=== PATIENT | male | born 1955 | race Caucasian/White ===

== ENCOUNTER 2023-06-20 14:08 | Outpatient (CLI) | payer MEDICARE, BC, SELFPAY ==
--- NOTE | 2023-06-20 14:30 | MR_ITS ---
[facility] [address] [facility] [address] Phone:?[phone] Fax:?[phone] Referring Physician Information: Adarsh Hernandez M.D. [address] [place] [address] Phone:?[phone] Fax:?[phone] Patient:?Royce Bravo D.Eloy.B:?1955 Sex:?Male Phone:?[phone] [facility] MRN:?[id number] Exam Date:?06/20/2023 EXAM: MRI OF THE RIGHT KNEE CLINICAL INFORMATION: The patient is a 67-year-old with right knee pain. Evaluate for medial meniscal tear. PRIOR SURGERY: None reported. COMPARISON STUDIES: Comparison is made to prior radiographs dated 06/13/2023. TECHNICAL INFORMATION: Imaging was performed on a high-field, 1.5 Clarissa MR scanner. Sagittal proton-density and fat-suppressed proton-density imaging was performed in addition to coronal proton-density and coronal STIR imaging. Axial proton-density and axial fat-suppressed T2 imaging was also produced. FINDINGS: Articular/Extraarticular collections: Effusion: Mild. Popliteal cyst: Small, seen on axial series 4 image 20. Loose bodies: No well-defined intra-articular loose bodies are present. Subcutaneous and extraarticular soft tissues: Nonspecific subcutaneous soft tissue edema and/or hemorrhage can be seen along the anterior, anteromedial, and anterolateral aspects of the right knee. Osseous structures: Cortical irregularity, subcortical cystic change, and subcortical edema can be seen along the lateral articular surfaces of the femoral trochlea on axial series 4 image 16 and on sagittal series 6 image 14. The findings are in keeping with chondromalacia and chondral loss described below. No other bony abnormalities about the knee are seen. There is no evidence for fracture, contusion, or stress injury. Ligamentous structures: ACL: Intact and normal in appearance. PCL: Chronic thickening of the proximal and mid portions of the PCL can be seen with increased intrasubstance signal intensity on sagittal series 6 images 19 and 20. The findings are in keeping with residual changes of a chronic moderate incomplete PCL sprain. No transverse disruption of PCL fibers can be seen. MCL: Chronic mild residual changes of a prior incomplete MCL sprain are noted and can be seen on coronal series 8 image 18. LCL: Intact and normal in appearance. Posterolateral corner: Intact and normal in appearance. Posteromedial corner: No posteromedial corner soft tissue injury. Semimembranosus and pes anserine tendons demonstrate no tendinopathy or associated bursitis. Extensor mechanism/Patellar retinacular structures: Patellar tendon: Intact, without tendinopathy. Quadriceps tendon: Intact, without tendinopathy. Retinacula: The medial and lateral retinacula are intact. The medial patellofemoral ligament is intact. Medial compartment: Medial meniscus: The medial meniscus is abnormal in appearance. There is horizontal tearing of the posterior horn seen on sagittal series 6 image 23, extending from the meniscal apex to the meniscal attachment and measuring approximately 15 mm in greatest dimension. Additional degeneration and fraying of the medial meniscus can be seen with partial-thickness tearing and fraying of the meniscotibial attachment on sagittal series 6 image 20. The middle and anterior portions of the medial meniscus appear intact. No parameniscal cyst formation is identified. Medial femoral condyle: Broad-based changes of grade II to III chondromalacia can be seen along the weightbearing surfaces of the medial femoral condyle. No full-thickness chondral defects are seen. Medial tibial plateau: Grade II chondromalacia can be seen along the weightbearing surfaces of the medial tibial plateau. Lateral compartment: Lateral meniscus: No evidence for lateral meniscal tearing is present. No evidence for parameniscal cyst formation can be seen. Lateral femoral condyle: No chondromalacia, chondral defect, or osteochondral abnormality. Lateral tibial plateau: No chondromalacia, chondral defect, or osteochondral abnormality. Patellofemoral compartment: Patella: Full-thickness and near full-thickness chondral loss can be seen involving the patellar apex with additional changes of grade II to III chondromalacia of the lateral patellar. The findings are seen on axial series 4 image 12. Trochlea: Full-thickness and near full-thickness chondral loss can be seen along the lateral articular surfaces of the femoral trochlea. Underlying bony changes are noted. Neurovascular: No definite neurovascular abnormalities are seen. CONCLUSION: 1. Tearing of the posterior horn of the medial meniscus, including horizontal tearing as well as incomplete tearing of the posterior root. 2. No lateral meniscal tearing is seen. 3. 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 4. Chronic incomplete PCL sprain. The ligamentous structures of the knee are otherwise intact. 5. Mild knee joint effusion and small popliteal cyst. AEC Electronically signed on 06/21/2023 8:07:00 AM by Dre Godoy M.D.
== END 2023-06-20 14:09 | disposition home or self-care (01) ==
LOC: MRI 14:09
PROVIDERS: PCP Physician Assistant; Visit Provider Orthopaedic Surgery
DX: M25.561 Pain in right knee (principal); S83.241A Other tear of medial meniscus, current injury, right knee, initial encounter; M22.41 Chondromalacia patellae, right knee; S83.521A Sprain of posterior cruciate ligament of right knee, initial encounter; M25.461 Effusion, right knee
CPT/HCPCS: 73721

== ENCOUNTER 2023-07-10 11:49 | Day surgery (SDC) | payer MEDICARE, BC, SELFPAY ==
[2023-07-10] VITALS (11 sets, daily range): BP systolic 90–152; BP diastolic 39–106; PULSE 60–73; RESP 10–16; TEMP 36.1–37; O2SAT 92–97
--- OUTSIDE RECORDS SUMMARY | 2023-07-10 11:53 | XMS_ITS | Clinical Summary ---
Author Name Unknown Organization [facility] Address [place], [place] [address] Care Team Providers Care Auto Damage Trainee Name Role Phone Pcp, No Primary Care Provider Unavailabl e Allergies Active Allergy Reactions Criticality Noted Date Comments Penicillins 05/08/2006 Medications Medication Sig Dispensed Refills Start Date End Date Status IMITREX 50 MG TAB take 2 tablets (100mg) by oral route x 1 dose with fluids as early as possible after the onset of a migraine attack; if headache returns, the dose may be repeated after 2 hours, not to exceed a total daily dose of 200mg. 0 05/08/2006 Active Immunizations Name Administration Dates Next Due Influenza, IIV3 (Age >=3 years) 03/16/2012 Td (Age >=7 Years) 04/12/1998 Tdap 05/18/2016 Family History Medical History Relation Name Comments Leukemia Father Cancer-prostate Maternal Grandfather Diabetes Maternal Grandfather Heart Disease Maternal Grandfather Cancer-breast Maternal Grandmother Stroke Paternal Grandfather Relation Name Status Comments Father (Age 30) Maternal Grandfather Maternal Grandmother Mother Alive Paternal Grandfather Social History Tobacco Use Types Packs/Day Years Used Date Smoking Tobacco: Never Smokeless Tobacco: Never Alcohol Use Standard Drinks/Week Comments No 0 (1 standard drink = 0.6 oz pur e alcohol) Sex and Gender Information Value Date Recorded Sex Assigned at Not on file Gender Identity Not on file Sexual Orientation Not on file Obstetrics History Last Filed Vital Signs Vital Sign Reading Time Taken Comments Blood Pressure 138/82 05/31/2018 9:01 AM CDT Pulse 68 05/31/2018 9:01 AM CDT Temperature - - Respiratory Rate 20 05/18/2016 9:42 AM CLINICAL RN MANAGER Oxygen Saturation - - Inhaled Oxygen Concentration - - Weight 93.9 kg (207 lb 1.6 oz) 05/28/2018 11:43 AM CDT Height 176.5 cm (5' 9.5) 05/28/2018 11:43 AM CD T Body Mass Index 30.14 05/28/2018 11:43 AM CDT Plan of Treatment Health Maintenance Due Date Last Done Comments Depression screening for age 12+ 1968 Hepatitis C screening for age 18-79 1974 Colonoscopy through age 75 2001 Lipids for age 45-75 2001 Zoster (shingles) series for age 50+ (1 of 2) 2006 BMI (ht and wt on same day) for age 18+ 05/29/2019 0 05/28/2018, 05/18/2016 Pneumococcal series for age 65+ (1 of 1 - PCV) 2021 COVID-19 vaccine series ( - 2022- season) 2022 Influenza for age 65+ 11/11/2023 03/16/2012 Tetanus booster 05/18/2026 05/18/2016, 04/12/1998 Tdap Completed 05/18/2016 Care Teams Auto Damage Trainee Relationship Specialty Start Date End Date Pcp, No . PCP - General 05/24/18
--- OUTSIDE RECORDS SUMMARY | 2023-07-10 11:53 | XMS_ITS | Encounter Summary ---
Author Name Unknown Organization [facility] Address [address] [place] [address] Care Team Providers Care International Marketing Intern Name Role Phone Mary Daly.A.-C. Primary Care Provider +1- [phone] Reason for Visit * Reason Onset Date Comments Results 04/11/2023 Encounter Details Date Type Department Care Team (Late st Contact Info) Description 04/11/2023 Clinical Communication Department of Family Medicine, [facility], in [place], [place] [address] [phone] Mary Daly, P.A.-CBuzz [address] [phone] Results Social History Tobacco Use Types Packs/Day Years Used Date Smoking Tobacco: Never Smokeless Tobacco: Never Alcohol Use Standard Drinks/Week Comments No 0 (1 standard drink = 0.6 oz pur e alcohol) [facility] Utilities Answer Date Recorded In the past 12 months has e electric, gas, oil, or water company threatened to shut off services in your home? No 04/05/2023 Humiliation, Afraid, Rape, and Kick questionnair e Answer Date Recorded Within the last year, have y ou been afraid of your partner or ex-partner? No 02/27/2022 Within the last year, have y ou been humiliated or emotionally abused in other ways by your partner or ex-partner? No Within the last year, have y ou been kicked, hit, slapped, or otherwise physically hurt by your partner or ex-partner? No 02/27/2022 Within the last year, have y ou been raped or forced to have any kind of sexual activity by your partner or ex-partner? No 02/27/2022 Social Connection and Isolat ion Panel [NHANES] Answer Date Recorded In a typical week, how many times do you talk on the phone with family, friends, or neighbors? Three times a week 02/27/2022 How often do you get togethe r with friends or relatives? Once a week 02/27/2022 How often do you attend chur ch or catholic services? More than 4 times per year 02/27/2022 Do you belong to any clubs o r organizations such as scientology groups, unions, fraternal or athletic groups, or school groups? Yes 02/27/2022 How often do you attend meet ings of the clubs or organizations you belong to? More than 4 times per year 02/27/2022 Are you , , di vorced, , never , or living with a partner? 02/27/2022 AUDIT-C Answer Date Recorded Q1: How often do you have a drink containing alc ohol? Never 02/27/2022 Average Number of Drinks Not on file 022 Frequency of Binge Drinking Not on file 02/09 Overall Financial Resource Strain (CARDIA) Answe r Date Recorded How hard is it for you to pa y for the very basics like food, housing, medical care, and heating? Not hard at all 02/27/2022 PHQ-2 Answer Date Recorded PHQ-2 Score 0 04/05/2023 [facility] - Occupational Stress Questionnaire Answer Date Recorded Do you feel stress - tense, restless, nervous, or anxious, or unable to sleep at night because your mind is troubled all the time - these days? Not at all 02/27/2022 Exercise Vital Sign Answer Date Recorde d On average, how many days pe r week do you engage in moderate to strenuous exercise (like a brisk walk)? 5 days 04/05/2023 On average, how many minutes do you engage in exercise at this level? 60 min 04/05/2023 Hunger Vital Sign Answer Date Recorded Within the past 12 months, y ou worried that your food would run out before you got the money to buy more. Never true 04/05/19 24 Within the past 12 months, t he food you bought just didn't last and you didn't have money to get more. Never true 04/05/2023 PRAPARE - Transportation Answer Date Re corded In the past 12 months, has l ack of transportation kept you from medical appointments or from getting medications? No 03/13 In the past 12 months, has l ack of transportation kept you from meetings, work, or from getting things needed for daily living? No 04/05/2023 Nutrition Answer Date Recorded On average, how many serving s of fruits and vegetables do you eat per day (serving size is equal to 1 cup or approximately the size of a tennis ball)? 3-5 04/05/2023 Dental Answer Date Recorded Dental: Regular Dentist Yes 02/28/20 Employment Answer Date Recorded Employment status Retired 04/05/2023 Housing Stability Answer Date Recorded What is your living situation today? I have a [facility] place to live 04/05/2023 Education Answer Date Recorded What is the highest level of school you have completed or the highest degree you have received? Bachelor's degree (e.g., BA, AB, BS) 02/27/2022 Sex and Gender Information Value Date Recorded Sex Assigned at Male 04/05/2023 9:00 AM DIRECTOR PHARMACOLOGY Gender Identity Male 04/05/2023 9:00 AM DIRECTOR PHARMACOLOGY Sexual Orientation Straight 04/05/2023 7: 50 AM DIRECTOR PHARMACOLOGY documented as of this encounter Miscellaneous Notes * Telephone Encounter - Megha Gonzalez, L.P.N. - 04/11/2023 11:08 AM DIRECTOR PHARMACOLOGY SUBJECTIVE CHIEF COMPLAINT / REASON FOR CALL Results Information Discussed Patient given recent lab findings along with advisement from provider per Mary KESSLER direction. PLAN Disposition/Recommendation: recommended continue engagement in self-management activities Information/Education: patient/caller able to teach back Caller agreeable to plan of care: yes The following references were used: Mary KSESLER CTOR PHARMACOLOGY * Telephone Encounter - Lidia Jackson R.N. - 04/11/2023 10:44 AM CST Left message for patient to return call to clinic. Does the patient need to speak to nursing? yes, please transfer to care team. Action needed: Please relay message from Mary Daly: fasting glucose is elevated in pre diabetes range. Recommend diet low in carbs/sugar and regular aerobic exercise to prevent progression to diabetes mellitus type 2. Overall, cholesterol looks good with components at goal. PSA (prostate-specific antigen) within normal range. CTOR PHARMACOLOGY documented in this encounter Plan of Treatment Not on file documented as of this encounter Visit Diagnoses Not on filedocumented in this encounter Additional Health Concerns Assessment Noted Time PHQ-9 Depression Total Score: 1 04/04/19 18 8:01 AM DIRECTOR PHARMACOLOGY documented as of this encounter Care Teams International Marketing Intern Relationship Specialty Start Date End Date Mary Daly P.A.-C. [address] [phone] PCP - General Family Medicine 03/08/20 documented as of this encounter
--- OUTSIDE RECORDS SUMMARY | 2023-07-10 11:53 | XMS_ITS | Encounter Summary ---
Author Name Unknown Organization [facility] Address [address] [place] [address] Care Team Providers Care Floor Service Worker Spring Name Role Phone Mary Daly P.A.-C. Primary Care Provider [phone]- [phone] Reason for Visit * Reason Comments Pre-op Exam On 07/10/2023 for hi s Right knee for a tear w/ Adarsh Bowers @ [facility] * Appointment Request (Routine) - Closed Specialty Diagnoses / Procedures Referred By Veronica daniels Referred To Contact Family Medicine Referral ID Status Reason Start Date Expiration Date Visits Re quested Visits Authorized [id number] Closed 06/25/2023 06/24/2024 1 1 Encounter Details Date Type Department Care Team (Late st Contact Info) Description 07/04/2023 3:30 PM CDT Office Visit Department of Family Medicine, [facility], in [place], [place] [address] [phone] Mary Daly, P.A.-C. [address] [place] [phone] Tear Knee Meniscus Current Subsequent Right (Primary Dx); Preoperative Exam; Hypertension Essential Primary; Frequency Urinary Social History Tobacco Use Types Packs/Day Years Used Date Smoking Tobacco: Never Smokeless Tobacco: Never Alcohol Use Standard Drinks/Week Comments No 0 (1 standard drink = 0.6 oz pur e alcohol) [facility] Utilities Answer Date Recorded In the past 12 months has [employer], or [employer] threatened to shut off services in your [...] often do you attend chur ch or restorationism services? More than 4 times per year 02/27/2022 Do you belong to any clubs o r organizations such as mandaen groups, unions, fraternal or athletic groups, or [...] Answer Date Recorded PHQ-2 Score 0 04/05/2023 [facility] Occupat ional Health - Occupational Stress [...] your living situation today? I have a [facility] place to live 04/05/2023 Education Answer Date Recorded What is the highest level of school you have completed or the highest degree you have received? Bachelor's degree (e.g., BA, AB, BS) 02/27/2022 Sex and Gender Information Value Date Recorded Sex Assigned at Male 04/05/2023 9:00 AM STONER HAND Gender Identity Male 04/05/2023 9:00 AM STONER HAND Sexual Orientation Straight 04/05/2023 7: 50 AM STONER HAND documented as of this encounter Last Filed Vital Signs Vital Sign Reading Time Taken Comments Blood Pressure 131/81 07/04/2023 3:12 PM CDT Pulse 77 07/04/2023 3:12 PM CDT Temperature 36.4 ??C (97.6 ??F) 07/04/2023 3:12 PM CD T Respiratory Rate - - Oxygen Saturation - - Inhaled Oxygen Concentration - - Weight 101 kg (223 lb 1.7 oz) 07/04/2023 3:12 PM CDT Height - - Body Mass Index 32.3 04/05/2023 7:51 AM STONER HAND documented in this encounter Patient Instructions * Patient Instructions* Mary Daly P.A.-C. - 07/04/2023 3:30 PM CDT No aspirin-containing products 7 days prior to procedure or ibuprofen/Advil 24 hours before surgery. Tylenol/acetaminophen would be a safe option if needed. Hold losartan morning of surgery. documented in this encounter Progress Notes * Mary Daly P.A.-C. - 07/04/2023 3:30 PM CDT FAMILY MEDICINE PREOPERATIVE EXAM: PROPOSED SURGERY DATE: 07/10/2023. SURGEON: Dr. Bowers. PROPOSED SURGERY: Arthroscopic meniscectomy- Right LOCATION: [facility] SUBJECTIVE HISTORY OF PRESENT ILLNESS Royce Bravo is a pleasant 67 y.o. male who presents to the clinic today for preoperative anesthetic medical exam for the above-mentioned procedure. He states he is feeling well and has no complaints at this time. REVIEW OF SYSTEMS Constitutional: - Negative for fever and night sweats. Eyes: - Negative for visual problems. ENT: - Negative for difficulty hearing. Respiratory: - Negative for shortness of breath and wheezing. Cardiovascular: - Negative for chest pain, pressure or tightness and rapid or fluttering heart beat. Gastrointestinal: - Negative for constipation, diarrhea and heartburn. Genitourinary: - Negative for difficulty urinating and pain with urination. Hematologic: - Negative for bruises or bleeds easily. Psychiatric/Behavioral: - Negative for loud snoring. The following portions of the patient's history were reviewed and updated as appropriate: allergies, current medications, family history, medical history, social history, surgical history, and problem list. Allergies Allergen Reactions Penicillin Other (see comments) Current Outpatient Medications: acetaminophen (TYLENOL) 500 mg tablet, Take 2 tablets by mouth every 4 (four) hours as needed., Disp: , Rfl: obdhdyj-qdlxsyvfamdzo-bnmuuadk (EXCEDRIN MIGRAINE) 250-250-65 mg per tablet, Take 2 tablets by mouth every 6 (six) hours as needed., Disp: , Rfl: losartan (COZAAR) 50 mg tablet, Take 1 tablet (50 mg total) by mouth daily., Disp: 90 tablet, Rfl: 3 tamsulosin (FLOMAX) 0.4 mg 24 hr capsule, Take 1 capsule (0.4 mg total) by mouth daily., Disp: 90 capsule, Rfl: 3 OBJECTIVE VITAL SIGNS BP 131/81 (BP Location: Right arm, Patient Position: Sitting, Cuff Size: Regular) Pulse 77 Temp36.4 ??C (Temporal) Wt 101 kg BMI 32.30 kg/m?? PHYSICAL EXAMINATION General: Well-nourished, well-developed 67 y.o. in no apparent distress. Awake, alert, age appropriate. HEENT: Head is normocephalic, atraumatic. Pupils round and reactive bilaterally. EOM's intact. Conjunctiva and sclera are clear. TM's are normal bilaterally. Oropharynx pink and moist without exudateor erythema. Mallampati III. Neck: Neck is supple without lymphadenopathy. Cardiovascular: Regular rate and rhythm without murmurs. Lungs: Clear to auscultation bilaterally with no adventitious sounds Skin: Warm, pink, and dry. No rashes or lesions Extremities: No peripheral edema. Neurologic: Alert and oriented x3. Bilateral patellar tendon DTRs 2+/4+. LABS Component Latest Ref Rng 04/05/2023 Potassium, P 3.6 - 5.2 mmol/L 4.8 Sodium, P 135 - 145 mmol/L 138 Chloride, P 98 - 107 mmol/L 103 Bicarbonate, P 22 - 29 mmol/L 26 Anion Gap, P 7 - 15 9 BUN (Blood Urea Nitrogen), P 8 - 24 mg/dL 17 Creatinine 0.74 - 1.35 mg/dL 1.05 Estimated GFR (eGFR) >=60 mL/min/BSA 78 Calcium, Total, P 8.8 - 10.2 mg/dL 9.5 Glucose, P mg/dL CANCELED SURGICAL RISK FACTORS: 1. Cardiac: HTN. 2. Pulmonary: None. 3. History Bacterial Endocarditis: None. 3. Diabetes: Prediabetes. 4. Obstructive sleep apnea: None. Stop Bang Total Score: 5. Anesthesia reactions: None. 6. Bleeding or clotting disorders: None. 7.Anticoagulation: None 8. Infection/Immunosuppression: None. 9. GERD: None. 10. History of MRSA skin infections: None. 11. Mallampati Class: III. 12. ASA Class: II. ASSESSMENT / PLAN IMPRESSION/REPORT/PLAN: #1 Preoperative Exam #2 Tear Knee Meniscus Current Subsequent Right #3 Hypertension Essential Primary - This patient is medically optimized for the above-mentioned procedure. - He is capable of achieving greater than 4 METS without cardiopulmonary symptoms. - Advised no aspirin-containing products 7 days prior to procedure. - Medication instructions include: Hold losartan morning of procedure. - No labs indicated at this time. - Follow-up as needed. #4 Frequency Urinary - Most recent PSA= 1.6 -At patient's annual exam discussed trial of Flomax for urinary frequency at which time he had declined, he would like to trial medication. - tamsulosin (FLOMAX) 0.4 mg 24 hr capsule; Take 1 capsule (0.4 mg total) by mouth daily., StartingWed 07/04/2023, Normal All questions have been answered and those present are in agreement with this plan. Mary Daly P.A.-C. documented in this encounter Plan of Treatment Not on file documented as of this encounter Visit Diagnoses Diagnosis Tear Knee Meniscus Current Subsequent Right- Primary Preoperative Exam Hypertension Essential Primary Frequency Urinary documented in this encounter Additional Health Concerns Assessment Noted Time PHQ-9 Depression Total Score: 1 04/04/19 18 8:01 AM STONER HAND documented as of this encounter Care Teams Floor Service Worker Spring Relationship Specialty Start Date End Date Mary Daly P.A.-C. [address] [place] [phone] PCP - General Family Medicine 03/08/20 documented as of this encounter
--- OUTSIDE RECORDS SUMMARY | 2023-07-10 11:53 | XMS_ITS | Encounter Summary ---
Author Name Unknown Organization [facility] Address [address] [place] [address] Care Team Providers Care Yoker Machine Operator Name Role Phone Mary Daly P.A.-C. Primary Care Provider [phone]- [phone] Reason for Visit * Reason Comments medication review Has itching on outer left ear. Having daily headaches since crown put on . Having to urinate more frequently. Has spot on left outer edge of foot. * Outpatient (Routine) - Closed Specialty Diagnoses / Procedures Referred By Veronica daniels Referred To Contact Family Medicine Mary Daly P.A.-C. [address], [place] [address] [facility] Region Referral ID Status Reason Start Date Expiration Date Visits Re quested Visits Authorized [id number] Closed 02/13/2023 02/12/2026 1 1 Encounter Details Date Type Department Care Team (Latest Contact Info) Description 04/05/2023 8:00 AM CORPORATE INVESTIGATOR Office Visit Department of Family Medicine, [facility], in [place], [place] [address] [place] [phone] Mary Daly P.A.-C. [address], [place] [address] General Medical Examination Adult (Primary Dx); Screening Examination Prostate Cancer; Screening Examination Diabetes Mellitus; Screening Cancer Colon; Encounter For Screening For Cardiovascular Disorders; Hypertension Essential Primary; Migraine Headache; Frequency Urinary; Callus [place]; Cerumen Impacted Left Social History Tobacco Use Types Packs/Day Years Used Date Smoking Tobacco: Never Smokeless Tobacco: Never Tobacco Cessation:Counseling Given: Not Answered Alcohol Use Standard Drinks/Week Comments No 0 (1 standard drink = 0.6 oz pur e alcohol) [facility] Utilities Answer Date Recorded In the [...] 02/27/2022 How often do you attend chur or mandaeism services? More than 4 times per year 02/27/2022 Do you belong to any clubs o r organizations such as cheondoism groups, unions, fraternal or athletic groups, or [...] Answer Date Recorded PHQ-2 Score 0 04/05/2023 [facility] of Occupat ional Health - Occupational Stress [...] your living situation today? I [facility] a [facility] [facility] to live 04/05/2023 Education Answer Date Recorded What is the highest level of school you have completed or the highest degree you have received? Bachelor's degree (e.g., BA, AB, BS) 02/27/2022 Sex and Gender Information Value Date Recorded Sex Assigned at Male 04/05/2023 9:00 AM CORPORATE INVESTIGATOR Gender Identity Male 04/05/2023 9:00 AM CORPORATE INVESTIGATOR Sexual Orientation Straight 04/05/2023 7: 50 AM CORPORATE INVESTIGATOR documented as of this encounter Last Filed Vital Signs Vital Sign Reading Time Taken Comments Blood Pressure 132/89 04/05/2023 7:51 AM CORPORATE INVESTIGATOR average of 3 Pulse 71 04/05/2023 7:51 AM CORPORATE INVESTIGATOR Temperature 35.8 ??C (96.4 ??F) 04/05/2023 7 :51 AM CORPORATE INVESTIGATOR Respiratory Rate 16 04/05/2023 7:51 AM CORPORATE INVESTIGATOR Oxygen Saturation - - Inhaled Oxygen Concentration - - Weight 100 kg (221 lb 7.2 oz) 7:51 AM CORPORATE INVESTIGATOR Height 177 cm (5' 9.69) 04/05/2023 7:5 1 AM CORPORATE INVESTIGATOR Body Mass Index 32.06 04/05/2023 7:51 AM CORPORATE INVESTIGATOR documented in this encounter H&P Notes * Mary Daly P.A.-C. - 04/05/2023 8:00 AM CST SUBJECTIVE CHIEF COMPLAINT / REASON FOR VISIT medication review (Has itching on outer left ear. Having daily headaches since crown put on . Having to urinate more frequently. Has spot on left outer edge of foot. ) HISTORY OF PRESENT ILLNESS Royce Bravo is a 67 y.o. male who presents today for medication review (Has itching on outer left ear. Having daily headaches since crown put on . Having to urinate more frequently. Has spot on left outer edge of foot. ). Patient does have several concerns today. Patient with history of migraines. He states since he hadcrown placed on right side and 2021 he has had almost daily headache on the right side behind his right eye described as throbbing pain. It does typically respond to Excedrin migraine. Patient notes increased frequency with urination and urgency particularly at night. He states some nights he will wake 3-4 times to urinate. Patient reports room for improvement in his diet. He does exercise regularly 5 times a week at the gym using the elliptical and lifting weights. In the summer he regularly bike rides. Patient does not smoke or drink alcohol. He has not currently sexually active and has no concerns for sexually transmitted infections. Patient has spot on the outside of his left foot, likely a corn, he is tried soaks but wonders if needs to be shaved down. REVIEW OF SYSTEMS Constitutional: - Negative for fever and night sweats. Eyes: - Negative for visual problems. ENT: - Negative for difficulty hearing. Respiratory: - Negative for shortness of breath and wheezing. Cardiovascular: - Negative for chest pain, pressure or tightness and rapid or fluttering heart beat. Gastrointestinal: - Negative for constipation and diarrhea. Genitourinary: - Negative for difficulty urinating and pain with urination. ALLERGIES/CONTRAINDICATIONS Penicillin MEDICAL HISTORY Past Medical History: Diagnosis Date Keratosis [facility] Migraine Headache SURGICAL HISTORY Past Surgical History: Procedure Laterality Date TONSILLECTOMY AND ADENOIDECTOMY age 8 TOTAL HIP ARTHROPLASTY Right 01/07/2019 [facility] VASECTOMY FAMILY HISTORY Family History Problem Relation Age of Onset Alzheimers disease Mother Leukemia Father SOCIAL HISTORY Social History Socioeconomic History Marital status: Spouse name: Not on file Number of children: Not on file Years of education: Not on file Highest education level: Bachelor's degree (e.g., BA, AB, BS) Occupational History Not on file Tobacco Use Smoking status: Never Smokeless tobacco: Never Vaping Use Vaping Use: never used Substance and Sexual Activity Alcohol use: No Drug use: Never Sexual activity: Not Currently Other Topics Concern Not on file Social History Narrative He works for [employer]. His from end-stage multiple sclerosis. Mother was recently moved to an assisted living facility. Social Determinants of Health Food Insecurity: No Food Insecurity (02/27/2022) Hunger Vital Sign Worried About Running Out of Food in the Last Year: Never true Ran Out of Food in the Last Year: Never true Transportation Needs: No Transportation Needs (02/27/2022) PRAPARE - Transportation Lack of Transportation (Medical): No Lack of Transportation (Non-Medical): No Physical Activity: Sufficiently Active (02/27/2022) Exercise Vital Sign Days of Exercise per Week: 5 days Minutes of Exercise per Session: 60 min Intimate Partner Violence: Not At Risk (02/27/2022) Humiliation, Afraid, Rape, and Kick questionnaire Fear of Current or Ex-Partner: No Emotionally Abused: No Physically Abused: No Sexually Abused: No Housing Stability: Low Risk (02/27/2022) Housing Stability Vital Sign Unable to Pay for Housing in the Last Year: No Number of Places Lived in the Last Year: 1 Unstable Housing in the Last Year: No OBJECTIVE BP 132/89 (BP Location: Right arm, Patient Position: Sitting, Cuff Size: Large) Comment: average of3 Pulse 71 Temp (!) 35.8 ??C (Temporal) Resp 16 Ht 177 cm Wt 100 kg BMI 32.06 kg/m?? PHYSICAL EXAMINATION General: Well-developed, well-nourished 67 y.o. male appearing stated age. Cooperative and in no apparent distress. Neck: Supple without lymphadenopathy. HEENT: Head is normocephalic. Conjunctivae and sclerae clear without injection. Pupils equal and reactive bilaterally. EOM's intact. Canals clear without discharge or erythema. Left TM impacted cerumen. Right TM normal. Oropharynx moist without exudate or erythema. Respiratory: Clear to auscultation throughout all lung bush. Respirations are easy and unlabored. Cardiovascular: Regular rate and rhythm without murmur. Abdomen: Bowel sounds present in all quadrants. Soft, non-tender with no palpable organomegaly. Neuro: Alert and oriented x3. Responds appropriately to questions and follows commands without difficulty. Bilateral patellar tendon DTR's 2+/4+. Extremities: No lower extremity edema. Yellowish papule with central core side of left foot near base of 5th digit. Skin: Warm, pink and dry. No rashes or lesions. Psych: Appropriate mood and affect. Dressed appropriately. Contributes to meaningful conversation. ASSESSMENT / PLAN #1 General Medical Examination Adult #2 Screening Examination Prostate Cancer #3 Screening Examination Diabetes Mellitus #4 Screening Cancer Colon #5 Encounter For Screening For Cardiovascular Disorders - Colon Cancer: Encouraged patient to complete. - PSA: Ordered today. - Abdominal aortic aneurysm screening: Not indicated. - Immunizations: Patient will plan to obtain Shingrix at outside pharmacy. - Lipid Panel: - Glucose: - Discussed the importance of healthy diet and exercise for overall well-being. BMI 32.06. - Encouraged patient to eat foods closest to their original form and incorporate intentional exercise into daily routine. Recommend at least 30 minutes of aerobic exercise most days of the week. - Patient should follow-up for another complete physical exam in 1 year. #6 Hypertension Essential Primary -Blood pressure is currently at goal. Continue with losartan 50 mg daily. Will check BMP today. - losartan (COZAAR) 50 mg tablet; Take 1 tablet (50 mg total) by mouth daily., Starting Marta 04/05/2023, Normal #7 Migraine Headache -Discussed trial of nortriptyline 10 mg at bedtime in hopes to treat chronic, daily headaches. Patient will follow-up with me in 1 month for re-evaluation. -He uses Excedrin for abortive treatment of migraine headache. #8 Frequency Urinary -Will check PSA today. Suspect symptoms are related to enlargement of prostate. Could consider trial of Flomax. Discussed not drinking fluids after dinner, limiting fluids during the day and avoidance of bladder irritants such as caffeine, carbonation and alcohol. #9 Callus [place] -[place] successfully pared down with 10 blade. #10 Cerumen Impacted Left -Ear lavage performed. Total time spent is 45 minutes. All questions have been answered. Patient demonstrated understanding and verbalized agreement with the plan. Mary Daly P.A.-C. ORATE INVESTIGATOR documented in this encounter Plan of Treatment Not on file documented as of this encounter Results * Cologuard - Sent Out Lab (05/03/2023 7:15 AM CORPORATE INVESTIGATOR) Result Negative Negative 05/14/2023 8:38 AM CORPORATE INVESTIGATOR [facility] Comment: NEGATIVE TEST RESULT. A negative Cologuard result indicates a low likelihood that a colorectal cancer (CRC) or advanced adenoma (adenomatous polyps with more advanced pre-malignant features) ??is present. The chance that a person with a negative Cologuard test has a colorectal cancer is less than 1 in 1500 (negative predictive value >99.9%) or has an ??advanced adenoma is less than ??5.3% (negative predictive value 94.7%). These data are based on a prospective cross-sectional study of 10,000 individuals at average risk for colorectal cancer who were screened with both Cologuard and colonoscopy. (Hillary Head al, N Engl J Med 2014;370(14):8870-1211) The normal value (reference range) for this assay is negative. COLOGUARD RE-SCREENING RECOMMENDATION: Periodic colorectal cancer screening is an important part of preventive healthcare for asymptomatic individuals at average risk for colorectal cancer. ??Following a negative Cologuard result, the [place] Cancer Society and U.S. Multi-Society Task Force screening guidelines recommend a Cologuard re-screening interval of 3 years. References: [place] [employer] Society Guideline for Colorectal Cancer Screening: https://www.cancer.org/cancer/bhojv-izejhg-udgedq/detection- diagnosis-staging/acs-recommendations.html.; Bryn DK, Jean-Paul FRAUSTO, Miya BeardK, Colorectal Cancer Screening: Recommendations for Physicians and Patients from the U.S. Multi-Society Task Force on Colorectal Cancer Screening , Am J Gastroenterology 2017; 112:7010-4406. TEST DESCRIPTION: Composite algorithmic analysis of stool DNA-biomarkers with hemoglobin immunoassay. ?? Quantitative values of individual biomarkers are not reportable and are not associated with individual biomarker result reference ranges. Cologuard is intended for colorectal cancer screening of adults of either sex, 45 years or older, who are at average-risk for colorectal cancer (CRC). Cologuard has been approved for use by the U.S. FDA. The performance of Cologuard was established in a cross sectional study of average-risk adults aged 50-84. Cologuard performance in patients ages 45 to 49 years was estimated by sub-group analysis of near-age groups. Colonoscopies performed for a positive result may find as the most clinically significant lesion: colorectal cancer [4.0%], advanced adenoma (including sessile serrated polyps greater than or equal to 1cm diameter) [20%] or non- advanced adenoma [31%]; or no colorectal neoplasia [45%]. These estimates are derived from a prospective cross-sectional screening study of 10,000 individuals at average risk for colorectal cancer who were screened with both Cologuard and colonoscopy. (Hillary Head al, N Engl J Med 2014;370(14):3484-5869.) Cologuard may produce a false negative or false positive result (no colorectal cancer or precancerous polyp present at colonoscopy follow up). A negative Cologuard test result does not guarantee the absence of CRC or advanced adenoma (pre-cancer). The current Cologuard screening interval is every 3 years. ([place] Cancer Society and U.S. Multi-Society Task Force). Cologuard performance data in a 10,000 patient pivotal study using colonoscopy as the reference method can be accessed at the following location: www.[employer]Deposco/results. Additional description of the Cologuard test process, warnings and precautions can be found at www.cologuard.com. Stool (Stool) 05/03/2023 7:1 5 AM CORPORATE INVESTIGATOR 05/04/2023 8:54 AM CORPORATE INVESTIGATOR Mary Daly P.A.-C. LAB BODY FLUIDS AN D STOOLS ORDERABLES [employer] [address] [place] [address] [employer] [address] [facility], [address] [place] [address] documented in this encounter Visit Diagnoses Diagnosis General Medical Examination Adult- Primary Screening Examination Prostate Cancer Screening Examination Diabetes Mellitus Screening Cancer Colon Encounter For Screening For Cardiovascular Disorders Hypertension Essential Primary Migraine Headache Frequency Urinary Callus [place] Cerumen Impacted Left documented in this encounter Additional Health Concerns Assessment Noted Time PHQ-9 Depression Total Score: 1 04/04/19 18 8:01 AM CORPORATE INVESTIGATOR documented as of this encounter Care Teams Yoker Machine Operator Relationship Specialty Start Date End Date Mary Daly P.A.-C. [address] [phone] PCP - General Family Medicine 03/08/20 documented as of this encounter
--- OUTSIDE RECORDS SUMMARY | 2023-07-10 11:53 | XMS_ITS | Encounter Summary ---
Author Name Unknown Organization [facility] Address [address] [place] [address] Care Team Providers Care Electrician Technician Name Role Phone Mary Daly-CBuzz Primary Care Provider [phone]- [phone] Encounter Details Date Type Department Care Team (Latest Contact Info) Description 04/05/2023 9:20 AM ED MANAGER - 04/05/2023 11:59 PM [facility] Encounter Department of Laboratory Medicine in [place], [place] [address] [facility] [place] [phone] Mary Daly PBuzzABuzz-CBuzz [address], [place] [address] Screening Examination Prostate Cancer; Encounter For Screening For Cardiovascular Disorders; Screening Examination Diabetes Mellitus; Monitoring For Therapeutic Drug Therapy; Hypertension Essential Primary Discharge Disposition: Home or Self Care Social History Tobacco Use Types Packs/Day Years Used Date Smoking Tobacco: Never Smokeless Tobacco: Never Alcohol Use Standard Drinks/Week Comments No 0 (1 standard drink = 0.6 oz pur e alcohol) [facility] Utilities Answer Date Recorded In the past 12 months has e [employer], gas, oil, or water company threatened to [...] How often do you attend chur or lutheran services? More than 4 times per year 02/27/2022 Do you belong to any clubs o r organizations such as uatsdin groups, unions, fraternal or athletic groups, or [...] Answer Date Recorded PHQ-2 Score 0 04/05/2023 [facility] of Occupat ional Health - Occupational Stress [...] your living situation today? I have a [facility] place to live 04/05/2023 Education Answer Date Recorded What is the highest level of school you have completed or the highest degree you have received? Bachelor's degree (e.g., BA, AB, BS) 02/27/2022 Sex and Gender Information Value Date Recorded Sex Assigned at Male 04/05/2023 9:00 AM ED MANAGER Gender Identity Male 04/05/2023 9:00 AM ED MANAGER Sexual Orientation Straight 04/05/2023 7: 50 AM ED MANAGER documented as of this encounter Medications at Time of Discharge Medication Sig Dispensed Refills Start Date End Date acetaminophen (TYLENOL) 500 mg tablet Take 2 tablets by mouth every 4 (four) hours as needed. mgunitp-dfcnkiytjdkjf-d affeine (EXCEDRIN MIGRAINE) 250-250-65 mg per tablet Take 2 tablets by mouth every 6 (six) hours as needed. losartan (COZAAR) 50 mg tabletIndications:Hyper tension Essential Primary Take 1 tablet (50 mg total) by mouth daily. 90 tablet 3 04/05/2023 nortriptyline (PAMELOR) 10 mg capsule Take 1 capsule (10 mg total) by mouth at bedtime. 30 capsule 1 04/05/2023 07/04/2023 documented as of this encounter Plan of Treatment Not on file documented as of this encounter Procedures Procedure Name Priority Date/Time Associated Diagnosis Comments LIPID PANEL, S Routine 04/05/2023 9:27 AM ED MANAGER Encounter For Screening For Cardiovascular Disorders PROSTATE-SPECIFIC AG (PSA) SCRN, S Routine 04/05/2023 9:27 AM ED MANAGER Screening Examination Prostate Cancer GLUCOSE, FASTING, S/P Routine 04/05/2023 9:27 AM ED MANAGER Screening Examination Diabetes Mellitus BASIC METABOLIC PANEL, S/P Routine 04/05/2023 9:27 AM ED MANAGER Monitoring For Therapeutic Drug Therapy documented in this encounter Results * Basic Metabolic Panel (04/05/2023 9:27 AM ED MANAGER) Potassium, P 4.8 3.6 - 5.2 mmol/L 04/05/2023 2:22 PM ED MANAGER OWAT Sodium, P 138 135 - 145 mmol/L 04/05/2023 2:22 PM ED MANAGER OWAT Chloride, P 103 98 - 107 mmol/L 04/05/2023 2:22 PM ED MANAGER OWAT Bicarbonate, P 26 22 - 29 mmol/L 04/05/2023 2:22 PM ED MANAGER OWAT Anion Gap, P 9 7 - 15 04/05/2023 2:22 PM ED MANAGER OWAT BUN (Blood Urea Nitrogen), P 17 8 - 24 mg/dL 04/05/2023 2:22 PM ED MANAGER OWAT Creatinine 1.05 0.74 - 1.35 mg/dL 04/05/2023 2:22 PM ED MANAGER OWAT Estimated GFR (eGFR) 78 >=60 mL/min/BSA 04/05/2023 2:22 PM ED MANAGER OWAT Comment: Estimated GFR calculated using the 2020 CKD_EPI creatinine equation. Calcium, Total, P 9.5 8.8 - 10.2 mg/dL 04/05/2023 2:22 PM ED MANAGER OWAT Glucose, P CANCELED mg/dL 04/05/2023 1:26 PM ED MANAGER OWAT Comment: Duplicate test request. Result canceled by the ancillary. Blood (Blood, Venous) 04/05/2023 9:27 AM ED MANAGER 04/05/2023 1:25 PM ED MANAGER Mary Daly P.A.-C. LAB BLOOD ADD-ON Performing Organization Address [facility]/ZIP Co de Phone Number [facility] [address] [place] [address], [facility] [place] [address] [place] [address] * (ABNORMAL) Glucose, Fasting (04/05/2023 9:27 AM ED MANAGER) Glucose, P 106(H) 70 - 100 mg/dL 04/05/2023 2:25 PM ED MANAGER OWAT Last Intake 13 hr 04/05/2023 1:26 PM ED MANAGER OWAT Blood (Blood, Venous) 04/05/2023 9:27 AM ED MANAGER 04/05/2023 1:26 PM ED MANAGER Mary Daly P.A.-C. LAB BLOOD NON ADD- ON Performing Organization Address [facility] Co de Phone Number [facility] [address] [place] [address], [facility] [place] [address] * Lipid Panel (04/05/2023 9:27 AM ED MANAGER) Triglycerides 93 mg/dL 04/05/2023 2:22 PM ED MANAGER OWAT Comment: ----REFERENCE VALUE---- Normal: <150 mg/dL Borderline High: 150-199 mg/dL High: 200-499 mg/dL Very High: > or =500 mg/dL Cholesterol, Total 167 mg/dL 2023 2:22 PM ED MANAGER OWAT Comment: ----REFERENCE VALUE---- Desirable: < 200 mg/dL Borderline High: 200 - 239 mg/dL High: > or = 240 mg/dL Cholesterol, LDL, Calculated 108 mg/dL 04/05/2023 2:22 PM ED MANAGER OWAT Comment: ----REFERENCE VALUE---- Desirable: <100 mg/dL Above Desirable: 100-129 mg/dL Borderline High: 130-159 mg/dL High: 160-189 mg/dL Very High: >=190 mg/dL ----ADDITIONAL INFORMATION---- LDL cholesterol calculated using the Morales/NIH equation. Cholesterol, HDL 42 >=40 mg/dL 04/05/19 2:22 PM ED MANAGER OWAT Cholesterol, Non-HDL, Calculated 125 mg/dL 04/05/2023 2:22 PM ED MANAGER OWAT Comment: ----REFERENCE VALUE---- Desirable: <130 mg/dL Above Desirable: 130-159 mg/dL Borderline High: 160-189 mg/dL High: 190-219 mg/dL Very High: > or =220 mg/dL Fasting (8 HR or more) Yes 04/05/2023 1:25 PM ED MANAGER OWAT Blood (Blood, Venous) 04/05/2023 9:27 AM ED MANAGER 04/05/2023 1:25 PM ED MANAGER Mary Daly P.A.-C. LAB BLOOD ADD-ON [facility] [address] [place] [id number], [facility] [place] [address] [place] [id number] * PSA (Prostate-Specific Antigen) Screen (04/05/2023 9:27 AM ED MANAGER) Prostate-Specific Ag 1.6 <=4.5 ng/mL 04/05/2023 2:18 PM ED MANAGER OWAT Comment: ----ADDITIONAL INFORMATION---- The testing method is an electrochemiluminescence assay manufactured by [employer] and performed on the Modular or Sage system. Values obtained with different assay methods or kits may be different and cannot be used interchangeably. Test results cannot be interpreted as absolute evidence for the presence or absence of malignant disease. Blood (Blood, Venous) 04/05/2023 9:27 AM ED MANAGER 04/05/2023 1:24 PM ED MANAGER Mary Daly P.A.-C. LAB BLOOD ADD-ON [facility] [address] [place] [address], [facility] [place] [address] [place] [address] documented in this encounter Visit Diagnoses Diagnosis Screening Examination Prostate Cancer Encounter For Screening For Cardiovascular Disorders Screening Examination Diabetes Mellitus Monitoring For Therapeutic Drug Therapy Hypertension Essential Primary documented in this encounter Additional Health Concerns Assessment Noted Time PHQ-9 Depression Total Score: 1 04/04/19 18 8:01 AM ED MANAGER documented as of this encounter Care Teams Electrician Technician Relationship Specialty Start Date End Date Mary Daly P.A.-C. [address] [place] [phone] PCP - General Family Medicine 03/08/20 documented as of this encounter
--- OUTSIDE RECORDS SUMMARY | 2023-07-10 11:53 | XMS_ITS | Encounter Summary ---
Author Name Unknown Organization [facility] Address [address] [place] [address] Care Team Providers Care Director Of Philanthropy Name Role Phone Mary Daly P.A.-C. Primary Care Provider [phone]- [phone] Reason for Referral * Outpatient (Routine) - Authorized Specialty Diagnoses / Procedures Referred By Contac t Referred To Contact Royce Britton M.B.B.S., M.D. [address] [place] [address] [facility] Region Referral ID Status Reason Start Date Expiration Date V isits Requested Visits Authorized [id number] Authorized 04/05/2023 10/04/2024 1 1 Scheduling Instructions 12-Month Medicare Visit ANICAL DESIGN ENGINEER FACILITIES Reason for Visit * Reason Comments Medicare Annual Wellness Visit Subsequen t * Outpatient (Routine) - Closed Specialty Diagnoses / Procedures Referred By Contac t Referred To Contact Toby Beaver P.A.-C., P.A. [address] [place] [address] [facility] Region Referral ID Status Reason Start Date Expiration Date Visits Re quested Visits Authorized [id number] Closed 04/04/2023 10/03/2024 1 1 Encounter Details Date Type Department Care Team (Late st Contact Info) Description 04/05/2023 8:15 AM MECHANICAL DESIGN ENGINEER FACILITIES Office Visit Department of Family Medicine, [facility], in [place], [place] [address] [facility] [place] [address] Toby Beaver P.A.-C., P.A. [address] [facility] [place] [id number] Cathy Hall R.N. Annual Medicare Examination Return (Primary Dx) Social History Tobacco Use Types Packs/Day Years Used Date Smoking Tobacco: Never Smokeless Tobacco: Never Alcohol Use Standard Drinks/Week Comments No 0 (1 standard drink = 0.6 oz pur e alcohol) [facility] Utilities Answer Date Recorded In the past 12 months has e [employer], gas, oil, or water [employer] threatened to shut off services in your [...] often do you attend chur ch or yarsanism services? More than 4 times per year 02/27/2022 Do you belong to any clubs o r organizations such as gnosticism groups, unions, fraternal or athletic groups, or [...] Answer Date Recorded PHQ-2 Score 0 04/05/2023 [facility] of Occupat ional Health - Occupational [...] your living situation today? I have a [facility] place to live 04/05/2023 Education Answer Date Recorded What is the highest level of school you have completed or the highest degree you have received? Bachelor's degree (e.g., BA, AB, BS) 02/27/2022 Sex and Gender Information Value Date Recorded Sex Assigned at Male 04/05/2023 9:00 AM MECHANICAL DESIGN ENGINEER FACILITIES Gender Identity Male 04/05/2023 9:00 AM MECHANICAL DESIGN ENGINEER FACILITIES Sexual Orientation Straight 04/05/2023 7: 50 AM MECHANICAL DESIGN ENGINEER FACILITIES documented as of this encounter Patient Instructions * Patient Instructions* Cathy Hall R.N. - 04/05/2023 8:15 AM MECHANICAL DESIGN ENGINEER FACILITIES Thank you for coming in today! Consider: - Adding a variety of fruits and vegetables to your diet and/or limiting processed foods - Purchasing a fire extinguisher/cheking to make sure it isn't Continue: - Eating a healthy diet; a variety of fruits and vegetables, minimizing processed foods and eating out - Keeping your home free of clutter, minimizing fall risks - Remaining physically active, following an exercise routine if you have one, or being up and moving frequently throughout the day - Remaining active in your community; group activities, volunteering - Staying up to date with your provider, keeping annual exams or follow ups, communicating health changes ANICAL DESIGN ENGINEER FACILITIES documented in this encounter Progress Notes * Cathy Hall R.N. - 04/05/2023 8:15 AM CST HEALTH ASSESSMENT Reason For Visit Patient presents with Medicare Annual Wellness Visit Subsequent The following portions of the patient's history were reviewed and updated as appropriate: allergies, medications, family history, social history, surgical history and care team/suppliers. VITALS Blood Pressure: 132/89 (average of 3) (04/05/2023 7:51 AM) Temperature: (!) 35.8 ??C (04/05/2023 7:51 AM) Temp Source: Temporal (04/05/2023 7:51 AM) Pulse Rate: 71 (04/05/2023 7:51 AM) Resp Rate: 16 (04/05/2023 7:51 AM) BMI (Calculated): 32.1 kg/m?? (04/05/2023 7:51 AM) Height: 177 cm (04/05/2023 7:51 AM) Weight: 100 kg (04/05/2023 7:51 AM) Health Risk Assessment (HRA) completed and reviewed: Yes Social Determinants of Health (SDOH) questionnaires were reviewed and the following concerns were prioritized to be addressed during this visit: No concerns identified. Depression Screening PHQ-2 Score: 0 Cognitive Assessment Cognitive function assessed by direct observation without concerns. Current Opioid Use None FUNCTIONAL/HOME ENVIRONMENT History of falls: Have you fallen within the last year or do you fear you might fall?: Yes (04/05/2023 7:54 AM) Do you use an assisted device to walk? (Walker, cane, wheelchair, crutch): No (07/25/2022 10:53 AM) Today, do you feel any of the following? Weak, dizzy, shaky, or unsteady?: No (07/25/2022 10:53 AM) Have you taken any medication within the last 6 hours which may make you feel drowsy? Such as sleep, pain, or anxiety medication: No (07/25/2022 10:53 AM) Home Safety Does your home have throw rugs, poor lighting or slippery bathtub/shower? No Does your home have grab bars in the bathroom, handrails on the stairs and steps? Yes Does your home have functional smoke and carbon monoxide alarms? Yes Advance Directive Advance Directives: Received 04/23/2018 Patient has advance directive on file and indicates it is current and in effect. Preventive Services Schedule Health Maintenance Topic Date Due Hepatitis C Screening Never done Zoster Vaccines (1 of 2) Never done Colorectal Cancer Screening 06/17/2013 Creatinine Level (Kidney Function Test) 02/27/2023 Potassium Level 02/27/2023 Sodium Level 02/27/2023 COVID-19 Vaccine ( season) 2024 (Originally 11/10/2022) Office Visit for Blood Pressure Check / Re-check 04/05/2024 Visit: Chronic Disease, age 18+ 04/05/2024 Visit: Medicare Annual Wellness 04/06/2024 Fasting Glucose for Diabetes Screening 02/27/2025 DTaP,Tdap,and Td Vaccines (3 - Td or Tdap) 05/18/2026 Depression Screening (Annual PHQ-2) Completed Fall Risk Screen (Annual) Completed Pneumococcal vaccine (65+ years) Completed Influenza Vaccine Completed After Visit Summary (AVS) reviewed and patient will access via patient online services ANICAL DESIGN ENGINEER FACILITIES documented in this encounter Plan of Treatment Scheduled Referrals Name Type Priority Associated Diagnoses Orde r Schedule Primary Care nurse visit (clinic) - [facility]; Medicare Annual Wellness Outpatient Referral Routine Expected: 04/05/2024 (Approximate), Expires: 07/04/2024 documented as of this encounter Visit Diagnoses Diagnosis Annual Medicare Examination Return- Primary documented in this encounter Additional Health Concerns Assessment Noted Time PHQ-9 Depression Total Score: 1 04/04/19 18 8:01 AM MECHANICAL DESIGN ENGINEER FACILITIES documented as of this encounter Care Teams Director Of Philanthropy Relationship Specialty Start Date End Date Mary Daly P.A.-C. [address] [place] [address] PCP - General Family Medicine 03/08/20 documented as of this encounter
--- OUTSIDE RECORDS SUMMARY | 2023-07-10 11:53 | XMS_ITS | Referral Summary ---
Author Name Unknown Organization [facility] Address [address] [place] [address] Care Team Providers Care Stave Grader Name Role Phone Mary Daly-C. Primary Care Provider +1- [phone] Source Comments Patient records contain information from all sites at [facility]. For routine questions regarding patient records, call [phone] during business hours, M-F 8:00 AM - 5:00 PM Central Time. Record requests for emergency care only can be directed to [phone] at any time.[facility] Encounters Date Type Department Care Team Description 07/04/2023 3:30 PM CDT Office Visit Department of Family Medicine, [facility], in [place], [place] [address] [phone] Mary Daly P.A.-C. Tear Knee Meniscus Current Subsequent Right (Primary Dx); Preoperative Exam; Hypertension Essential Primary; Frequency Urinary 04/11/2023 Clinical Communication Department of Family Medicine, [facility], in [place], [place] [address] [phone] Mary Daly P.A.-C. Results from Last 3 Months Allergies Active Allergy Reactions Criticality Noted Date Comments Penicillin Other (see comments) 10/12/2009 Medications Medication Sig Dispensed Refills Start Date End Date Status aspirin-acetamino phen-caffeine (EXCEDRIN MIGRAINE) 250-250-65 mg per tablet Take 2 tablets by mouth every 6 (six) hours as needed. Active acetaminophen (TYLENOL) 500 mg tablet Take 2 tablets by mouth every 4 (four) hours as needed. Active losartan (COZAAR) 50 mg tabletIndications :Hypertension Essential Primary Take 1 tablet (50 mg total) by mouth daily. 90 tablet 3 04/05/2023 Active tamsulosin (FLOMAX) 0.4 mg 24 hr capsule Take 1 capsule (0.4 mg total) by mouth daily. 90 capsule 3 07/04/2023 Active nortriptyline (PAMELOR) 10 mg capsule Take 1 capsule (10 mg total) by mouth at bedtime. 30 capsule 1 04/05/2023 07/04/2023 Discontinued (Therapy completed) Active Problems Problem Noted Date Diagnosed Date PreDiabetes 07/04/2023 Frequency Urinary 07/04/2023 Hypertension Essential Primary 04/05/2023 Primary Osteoarthritis Hip Right 11/14/2018 Migraine Headache 05/08/2012 Immunizations Name Administration Dates Next Due Influenza high dose QV(65 ye ars or older) (PF) 02/15/2022 Influenza, Seasonal, Injectable 03/16/2012 PCV20 02/27/2022 RZV (SHINGRIX) 02/09/2020(Deferred: Patient Ref used) Td, (Adult) Unspecified 04/12/1998 Tdap 05/18/2016,06/02/2005 Zoster, Unspecified 04/05/2023(Deferred: Other) influenza vaccine QV(FLUBLOK ) (18 years or older) (PF) 03/01/2023 influenza vaccine quad (FLUZONE/FLUARIX) (6 months and older)(PF) 12/28/2020,12/17/2019,12/18/2018,2017 Social History Tobacco Use Types Packs/Day Years Used Date Smoking Tobacco: Never Smokeless Tobacco: Never Alcohol Use Standard Drinks/Week Comments No 0 (1 standard drink = 0.6 oz pur e alcohol) [facility] Utilities Answer Date Recorded In the past 12 months has e [employer], gas, oil, or water [employer] threatened to shut off services in your [...] often do you attend chur ch or holiness services? More than 4 times per year 02/27/2022 Do you belong to any clubs o r organizations such as quaker groups, unions, fraternal or athletic groups, or [...] Answer Date Recorded PHQ-2 Score 0 04/05/2023 [facility] of Occupat ional Health - Occupational Stress [...] money to buy more. Never true 04/05/19 Within the past 12 months, t he [...] your living situation today? I have a [facility] place to live 04/05/2023 Education Answer Date Recorded What is the highest level of school you have completed or the highest degree you have received? Bachelor's degree (e.g., BA, AB, BS) 02/27/2022 Sex and Gender Information Value Date Recorded Sex Assigned at Male 04/05/2023 9:00 AM GUEST EXPERIENCE CAPTAIN Gender Identity Male 04/05/2023 9:00 AM GUEST EXPERIENCE CAPTAIN Sexual Orientation Straight 04/05/2023 7: 50 AM GUEST EXPERIENCE CAPTAIN Last Filed Vital Signs Vital Sign Reading Time Taken Comments Blood Pressure 131/81 07/04/2023 3:12 PM CDT Pulse 77 07/04/2023 3:12 PM CDT Temperature 36.4 ??C (97.6 ??F) 07/04/2023 3:12 PM CD T Respiratory Rate 16 04/05/2023 7:51 AM GUEST EXPERIENCE CAPTAIN Oxygen Saturation 95% 12/18/2018 11:48 AM CDT room air Inhaled Oxygen Concentration - - Weight 101 kg (223 lb 1.7 oz) 07/04/2023 3:12 PM CDT Height 177 cm (5' 9.69) 04/05/2023 7:51 AM GUEST EXPERIENCE CAPTAIN Body Mass Index 32.3 04/05/2023 7:51 AM GUEST EXPERIENCE CAPTAIN Plan of Treatment Not on file Medical Devices Implanted Type Area Manager Mobile Device Identifier Shelf Expiration Date Model / Serial / Lot Hip Implant Hip Implant Right: Hip Procedures Procedure Name Priority Date/Time Associated Diagnosis Comments COLOGUARD Routine 05/03/2023 7:15 AM GUEST EXPERIENCE CAPTAIN Screening Cancer Colon GLUCOSE, FASTING, S/P Routine 04/05/2023 9:27 AM GUEST EXPERIENCE CAPTAIN Screening Examination Diabetes Mellitus BASIC METABOLIC PANEL, S/P Routine 04/05/2023 9:27 AM GUEST EXPERIENCE CAPTAIN Monitoring For Therapeutic Drug Therapy from Last 3 Months or Most Recently Relevant to Health Maintenance Results * Cologuard - Sent Out Lab (05/03/2023 7:15 AM GUEST EXPERIENCE CAPTAIN) Result Negative Negative 05/14/2023 8:38 AM GUEST EXPERIENCE CAPTAIN EXLI Comment: NEGATIVE TEST RESULT. A negative [...] screened with both Cologuard and colonoscopy. (Hillary Cummings et al, N Engl J Med 2014;370(14):5452-0314) The normal value (reference range) for this assay is negative. COLOGUARD RE-SCREENING RECOMMENDATION: Periodic colorectal cancer screening is an important part of preventive healthcare for asymptomatic individuals at average risk for colorectal cancer. ??Following a negative Cologuard result, the [place] [employer] Society and U.S. Multi-Society Task Force screening guidelines recommend a Cologuard re-screening interval of 3 years. References: [place] [employer] Guideline for Colorectal Cancer Screening: https://www.cancer.org/cancer/iowdq-jtenvh-wbqwlt/detection- diagnosis-staging/acs-recommendations.html.; Bryn PURVIS, Jean-Paul FRAUSTO, Miya MERRITT, Colorectal Cancer Screening: Recommendations for Physicians and Patients from the U.S. Multi-Society Task Force on Colorectal Cancer Screening , Am J Gastroenterology 2017; 112:2610-7203. TEST DESCRIPTION: Composite algorithmic analysis of stool [...] screened with both Cologuard and colonoscopy. (Hillary Cummings et al, N Engl J Med 2014;370(14):1048-0068.) Cologuard may produce a false negative or false positive result (no colorectal cancer or precancerous polyp present at colonoscopy follow up). A negative Cologuard test result does not guarantee the absence of CRC or advanced adenoma (pre-cancer). The current Cologuard screening interval is every 3 years. ([place] [employer] and U.S. Multi-Society Task Force). Cologuard performance data in a 10,000 patient pivotal study using colonoscopy as the reference method can be accessed at the following location: www.[employer])/results. Additional description of the Cologuard test process, warnings and precautions can be found at www.cologuard.com. Stool (Stool) 05/03/2023 7:1 5 AM GUEST EXPERIENCE CAPTAIN 05/04/2023 8:54 AM GUEST EXPERIENCE CAPTAIN Mary Daly P.A.-C. LAB BODY FLUIDS AN D STOOLS ORDERABLES Performing Organization Address City/[facility]/ZIP Co de Phone Number [employer] [address] [place] [address] [employer] [address] [facility], [address] [place] [address] * (ABNORMAL) Glucose, Fasting (04/05/2023 9:27 AM GUEST EXPERIENCE CAPTAIN) Glucose, P 106(H) 70 - 100 mg/dL 04/05/2023 2:25 PM GUEST EXPERIENCE CAPTAIN OWAT Last Intake 13 hr 04/05/2023 1:26 PM GUEST EXPERIENCE CAPTAIN OWAT Blood (Blood, Venous) 04/05/2023 9:27 AM GUEST EXPERIENCE CAPTAIN 04/05/2023 1:26 PM GUEST EXPERIENCE CAPTAIN Mary Daly P.A.-C. LAB BLOOD NON ADD- ON Performing Organization Address City/[facility] Co de Phone Number [facility] [address], [place] [address], [place] OWAT [facility] [place] [address] [place] [id number] * Basic Metabolic Panel (04/05/2023 9:27 AM GUEST EXPERIENCE CAPTAIN) Potassium, P 4.8 3.6 - 5.2 mmol/L 04/05/2023 2:22 PM GUEST EXPERIENCE CAPTAIN OWAT Sodium, P 138 135 - 145 mmol/L 04/05/2023 2:22 PM GUEST EXPERIENCE CAPTAIN OWAT Chloride, P 103 98 - 107 mmol/L 04/05/2023 2:22 PM GUEST EXPERIENCE CAPTAIN OWAT Bicarbonate, P 26 22 - 29 mmol/L 04/05/2023 2:22 PM GUEST EXPERIENCE CAPTAIN OWAT Anion Gap, P 9 7 - 15 04/05/2023 2:22 PM GUEST EXPERIENCE CAPTAIN OWAT BUN (Blood Urea Nitrogen), P 17 8 - 24 mg/dL 04/05/2023 2:22 PM GUEST EXPERIENCE CAPTAIN OWAT Creatinine 1.05 0.74 - 1.35 mg/dL 04/05/2023 2:22 PM GUEST EXPERIENCE CAPTAIN OWAT Estimated GFR (eGFR) 78 >=60 mL/min/BSA 04/05/2023 2:22 PM GUEST EXPERIENCE CAPTAIN OWAT Comment: Estimated GFR calculated using the 2020 CKD_EPI creatinine equation. Calcium, Total, P 9.5 8.8 - 10.2 mg/dL 04/05/2023 2:22 PM GUEST EXPERIENCE CAPTAIN OWAT Glucose, P CANCELED mg/dL 04/05/2023 1:26 PM GUEST EXPERIENCE CAPTAIN OWAT Comment: Duplicate test request. Result canceled by the ancillary. Blood (Blood, Venous) 04/05/2023 9:27 AM GUEST EXPERIENCE CAPTAIN 04/05/2023 1:25 PM GUEST EXPERIENCE CAPTAIN Mary Daly P.A.-C. 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 See document viewer. Advance Directives 06/03/2010 12:00 AM [employer] document. See document viewer. Healthcare Agents on File Name Relationship Healthcare Agent [facility] Health Care Agent [facility] Health Care Agent Care Teams Stave Grader Relationship Specialty Start Date End Date Mary Daly P.A.-C. [address] [phone] PCP - General Family Medicine 03/08/20
--- OUTSIDE RECORDS SUMMARY | 2023-07-10 11:53 | XMS_ITS | Clinical Summary ---
Author Name Unknown Organization [facility] Address [address] [place] [address] Care Team Providers Care Manager Community Development Name Role Phone Mary Daly P.A.-C. Primary Care Provider [phone]- [phone] Source Comments Patient records contain information from all sites at [facility]. For routine questions regarding patient records, call [phone] during business hours, M-F 8:00 AM - 5:00 PM Central Time. Record requests for emergency care only can be directed to [phone] at any time.[facility] Allergies Active Allergy Reactions Criticality Noted Date [...] Osteoarthritis Hip Right 11/14/2018 Migraine Headache 05/08/2012 Encounters Date Type Department Care Team Description 07/04/2023 3:30 PM CDT Office Visit Department of Family Medicine, [facility], in [place], [place] [address] [place] [address] Mary Daly P.A.-Kika. Tear Knee Meniscus Current Subsequent Right (Primary Dx); Preoperative Exam; Hypertension Essential Primary; Frequency Urinary 04/11/2023 Clinical Communication Department of Family Medicine, [facility], in [place], [place] [address] [place] [address] Mary Daly P.A.-C. Results from Last 3 Months Immunizations Name Administration Dates Next Due Influenza high dose QV(65 ye ars or older) (PF) 02/15/2022 Influenza, Seasonal, Injectable 03/16/2012 PCV20 02/27/2022 RZV (SHINGRIX) 02/09/2020(Deferred: Patient Ref used) Td, (Adult) Unspecified 04/12/1998 Tdap 05/18/2016,06/02/2005 Zoster, Unspecified 04/05/2023(Deferred: Other) influenza vaccine QV(FLUBLOK ) (18 years or older) (PF) 03/01/2023 influenza vaccine quad (FLUZONE/FLUARIX) (6 months and older)(PF) 12/28/2020,12/17/2019,12/18/2018,2017 Family History Medical History Relation Name Comments Leukemia Father Sharron Prostate cancer Maternal Grandfather felix kaplan Breast cancer Maternal Grandmother dayday castillo Alzheimers disease Mother Courtney Coronary artery disease Paternal Grandfather sharron an gregson Coronary artery disease Paternal Grandmother lobito an derson Stroke Paternal Grandmother lobito bravo Relation Name Status Comments Father Sharron (Age 30) Maternal Grandfather felix kaplan Maternal Grandmother dayday castillo Mother Courtney Paternal Grandfather sharron bravo Paternal Grandmother lobito bravo Social History Tobacco Use Types Packs/Day Years Used Date Smoking Tobacco: Never Smokeless Tobacco: Never Alcohol Use Standard Drinks/Week Comments No 0 (1 standard drink = 0.6 oz pur e alcohol) [facility] Utilities Answer Date Recorded In the past 12 months has th e electric, gas, oil, or water company [...] often do you attend chur ch or anabaptism services? More than 4 times per year 02/27/2022 Do you belong to any clubs o r organizations such as sabianism groups, unions, fraternal or athletic groups, or [...] Answer Date Recorded PHQ-2 Score 0 04/05/2023 [facility] - Occupational Stress Questionnaire Answer Date Recorded [...] Sex Assigned at Male 04/05/2023 9:00 AM NUCLEAR MEDICINE CHIEF TECHNOLOGIST Gender Identity Male 04/05/2023 9:00 AM NUCLEAR MEDICINE CHIEF TECHNOLOGIST Sexual Orientation Straight 04/05/2023 7: 50 AM NUCLEAR MEDICINE CHIEF TECHNOLOGIST Last Filed Vital Signs Vital Sign Reading Time Taken Comments Blood Pressure 131/81 07/04/2023 3:12 PM CDT Pulse 77 07/04/2023 3:12 PM CDT Temperature 36.4 ??C (97.6 ??F) 07/04/2023 3:12 PM CD T Respiratory Rate 16 04/05/2023 7:51 AM NUCLEAR MEDICINE CHIEF TECHNOLOGIST Oxygen Saturation 95% 12/18/2018 11:48 AM CDT room air Inhaled Oxygen Concentration - - Weight 101 kg (223 lb 1.7 oz) 07/04/2023 3:12 PM CDT Height 177 cm (5' 9.69) 04/05/2023 7:51 AM NUCLEAR MEDICINE CHIEF TECHNOLOGIST Body Mass Index 32.3 04/05/2023 7:51 AM NUCLEAR MEDICINE CHIEF TECHNOLOGIST Plan of Treatment Health Maintenance Due Date Last Done Comments CT Colonography 1955 Colonoscopy 1955 Hepatitis C Screening 1955 Zoster Vaccines (1 of 2) 2006 FIT 06/17/2013 06/17/2012 COVID-19 Vaccine ( season) 2024 02/15/2021, 06/25/2020, 05/28/2020 Postponed from 11/10/2022 (Patient Refused) Creatinine Level (Kidney Function Test) 04/05/2024 04/05/2023, 02/27/2022, 02/09/2020, Additional history exists Fasting Glucose for Diabetes Screening 04/05/2024 04/05/2023, 02/27/2022, 02/09/2020, Additional history exists Potassium Level 04/05/2024 04/05/2023, 02/09, 02/09/2020, Additional history exists Sodium Level 04/05/2024 04/05/2023, 02/09, 02/09/2020, Additional history exists Visit: Medicare Annual Wellness 04/06/2024 04/05/2023, 02/27/2022 Office Visit for Blood Pressure Check / Re-check 07/03/2024 07/04/2023 Visit: Chronic Disease, age 18+ 07/03/2024 07/04/2023, 04/05/2023 Cologuard 05/03/2026 05/03/2023 Colorectal Cancer Screening 05/03/2026 DTaP,Tdap,and Td Vaccines (3 - Td or Tdap) 05/18/2026 05/18/2016, 06/02/2005, 04/12/1998 Pneumococcal vaccine (65+ years) Completed 02/27/2022 Influenza Vaccine Completed 03/01/2023, , 12/28/2020, Additional history exists Depression Screening (Annual PHQ-2) Completed 04/05/2023, 04/05/2023 Fall Risk Screen (Annual) Completed 04/05/2023 Medical Devices Implanted Type Area Quarter Trimmer Device Identifier Shelf Expiration Date Model / Serial / Lot Hip Implant Hip Implant Right: Hip Procedures Procedure Name Priority Date/Time Associated Diagnosis Comments COLOGUARD Routine 05/03/2023 7:15 AM NUCLEAR MEDICINE CHIEF TECHNOLOGIST Screening Cancer Colon GLUCOSE, FASTING, S/P Routine 04/05/2023 9:27 AM NUCLEAR MEDICINE CHIEF TECHNOLOGIST Screening Examination Diabetes Mellitus BASIC METABOLIC PANEL, S/P Routine 04/05/2023 9:27 AM NUCLEAR MEDICINE CHIEF TECHNOLOGIST Monitoring For Therapeutic Drug Therapy from Last 3 Months or Most Recently Relevant to Health Maintenance Results * Cologuard - Sent Out Lab (05/03/2023 7:15 AM NUCLEAR MEDICINE CHIEF TECHNOLOGIST) Result Negative Negative 05/14/2023 8:38 AM NUCLEAR MEDICINE CHIEF TECHNOLOGIST EXLI Comment: NEGATIVE TEST RESULT. A negative [...] (Hillary Head al, N Engl J Med 2014;370(14):6238-9253) The normal value (reference range) for this assay is negative. COLOGUARD RE-SCREENING RECOMMENDATION: Periodic colorectal cancer screening is an important part of preventive healthcare for asymptomatic individuals at average risk for colorectal cancer. ??Following a negative Cologuard result, the [place] Cancer Society and U.S. Multi-Society Task Force screening guidelines recommend a Cologuard re-screening interval of 3 years. References: [place] [employer] Guideline for Colorectal Cancer Screening: https://www.cancer.org/cancer/ngggn-qibmtj-swfjih/detection- diagnosis-staging/acs-recommendations.html.; Bryn DK, Jean-Paul FRAUSTO, Miya BeardK, Colorectal Cancer Screening: Recommendations for Physicians and Patients from the U.S. Multi-Society Task Force on Colorectal Cancer Screening , Am J Gastroenterology 2017; 112:9078-9943. TEST DESCRIPTION: Composite algorithmic analysis of stool [...] (Hillary Head al, N Engl J Med 2014;370(14):0959-7001.) Cologuard may produce a false negative or false positive result (no colorectal cancer or precancerous polyp present at colonoscopy follow up). A negative Cologuard test result does not guarantee the absence of CRC or advanced adenoma (pre-cancer). The current Cologuard screening interval is every 3 years. ([place] Cancer Society and U.S. Multi-Society Task Force). Cologuard performance data in a 10,000 patient pivotal study using colonoscopy as the reference method can be accessed at the following location: www.[employer]/results. Additional description of the Cologuard test process, warnings and precautions can be found at www.colEditliterd.com. Stool (Stool) 05/03/2023 7:1 5 AM NUCLEAR MEDICINE CHIEF TECHNOLOGIST 05/04/2023 8:54 AM NUCLEAR MEDICINE CHIEF TECHNOLOGIST Mary Daly P.A.-C. LAB BODY FLUIDS AN D STOOLS ORDERABLES [facility] [address] [place] [address] EXLI Trippin In [address] [place] [address], [address] [place] [address] * (ABNORMAL) Glucose, Fasting (04/05/2023 9:27 AM NUCLEAR MEDICINE CHIEF TECHNOLOGIST) Glucose, P 106(H) 70 - 100 mg/dL 04/05/2023 2:25 PM NUCLEAR MEDICINE CHIEF TECHNOLOGIST OWAT Last Intake 13 hr 04/05/2023 1:26 PM NUCLEAR MEDICINE CHIEF TECHNOLOGIST OWAT Blood (Blood, Venous) 04/05/2023 9:27 AM NUCLEAR MEDICINE CHIEF TECHNOLOGIST 04/05/2023 1:26 PM NUCLEAR MEDICINE CHIEF TECHNOLOGIST Mary Daly P.A.-C. LAB BLOOD NON ADD- ON [facility] [address] [place] [address], [facility] OWAT [facility] [place] [address] [place] [address] * Basic Metabolic Panel (04/05/2023 9:27 AM NUCLEAR MEDICINE CHIEF TECHNOLOGIST) Potassium, P 4.8 3.6 - 5.2 mmol/L 04/05/2023 2:22 PM NUCLEAR MEDICINE CHIEF TECHNOLOGIST OWAT Sodium, P 138 135 - 145 mmol/L 04/05/2023 2:22 PM NUCLEAR MEDICINE CHIEF TECHNOLOGIST OWAT Chloride, P 103 98 - 107 mmol/L 04/05/2023 2:22 PM NUCLEAR MEDICINE CHIEF TECHNOLOGIST OWAT Bicarbonate, P 26 22 - 29 mmol/L 04/05/2023 2:22 PM NUCLEAR MEDICINE CHIEF TECHNOLOGIST OWAT Anion Gap, P 9 7 - 15 04/05/2023 2:22 PM NUCLEAR MEDICINE CHIEF TECHNOLOGIST OWAT BUN (Blood Urea Nitrogen), P 17 8 - 24 mg/dL 04/05/2023 2:22 PM NUCLEAR MEDICINE CHIEF TECHNOLOGIST OWAT Creatinine 1.05 0.74 - 1.35 mg/dL 04/05/2023 2:22 PM NUCLEAR MEDICINE CHIEF TECHNOLOGIST OWAT Estimated GFR (eGFR) 78 >=60 mL/min/BSA 04/05/2023 2:22 PM NUCLEAR MEDICINE CHIEF TECHNOLOGIST OWAT Comment: Estimated GFR calculated using the 2020 CKD_EPI creatinine equation. Calcium, Total, P 9.5 8.8 - 10.2 mg/dL 04/05/2023 2:22 PM NUCLEAR MEDICINE CHIEF TECHNOLOGIST OWAT Glucose, P CANCELED mg/dL 04/05/2023 1:26 PM NUCLEAR MEDICINE CHIEF TECHNOLOGIST OWAT Comment: Duplicate test request. Result canceled by the ancillary. Blood (Blood, Venous) 04/05/2023 9:27 AM NUCLEAR MEDICINE CHIEF TECHNOLOGIST 04/05/2023 1:25 PM NUCLEAR MEDICINE CHIEF TECHNOLOGIST Mary Daly P.A.-C. LAB BLOOD ADD-ON [facility] [address] [place] [address], [facility] OWAT [facility] [place] [address] [place] [address] from Last 3 Months or Most Recently Relevant to Health Maintenance Advance Directives For more information, please contact: [phone] Documents on File Type Date Recorded Patient Personnel Associate Expl anation Advance Directives 04/23/2018 3:10 PM POA for Healthcare Advance Directives 06/18/2015 12:00 AM Lega cy document. See document viewer. Advance Directives 06/03/2010 12:00 AM Leg acy document. See document viewer. Healthcare Agents on File Name Relationship Healthcare Agent [facility] Health Care Agent [facility] Health Care Agent Care Teams Manager Community Development Relationship Specialty Start Date End Date Mary Daly P.A.-C. [address] [place] [address] PCP - General Family Medicine 03/08/20
--- OUTSIDE RECORDS SUMMARY | 2023-07-10 11:53 | XMS_ITS | Encounter Summary ---
Author Name Unknown Organization [facility] Address [address] [place] [address] Care Team Providers Care Weekend Anchor Name Role Phone Mary Daly P.A.-C. Primary Care Provider [phone]- [phone] Encounter Details Date Type Department Care Team (Late st Contact Info) Description 04/06/2023 Orders Only Department of Family Medicine, [facility], in [place], [place] [address] [facility] [place] [phone] Mary Daly, P.A.-C. [address] [place] [phone] Screening Cancer Colon Social History Tobacco Use Types Packs/Day Years Used Date Smoking Tobacco: Never Smokeless Tobacco: Never Alcohol Use Standard Drinks/Week Comments No 0 (1 standard drink = 0.6 oz pur e alcohol) [facility] Utilities Answer Date Recorded In the past 12 months has e [employer], gas, oil, or water [employer] threatened to shut off services in your [...] How often do you attend chur or adventist services? More than 4 times per year 02/27/2022 Do you belong to any clubs o r organizations such as christianity groups, unions, fraternal or athletic groups, or [...] Answer Date Recorded PHQ-2 Score 0 04/05/2023 [facility] - Occupational Stress [...] your living situation today? I have a [facility] place to live 04/05/2023 Education Answer Date Recorded What is the highest level of school you have completed or the highest degree you have received? Bachelor's degree (e.g., BA, AB, BS) 02/27/2022 Sex and Gender Information Value Date Recorded Sex Assigned at Male 04/05/2023 9:00 AM CLUBHOUSE MANAGER Gender Identity Male 04/05/2023 9:00 AM CLUBHOUSE MANAGER Sexual Orientation Straight 04/05/2023 7: 50 AM CLUBHOUSE MANAGER documented as of this encounter Plan of Treatment Not on file documented as of this encounter Procedures Procedure Name Priority Date/Time Associated Diagnosis Comments COLOGUARD Routine 05/03/2023 7:15 AM CLUBHOUSE MANAGER Screening Cancer Colon documented in this encounter Results * Cologuard - Sent Out Lab (05/03/2023 7:15 AM CLUBHOUSE MANAGER) Result Negative Negative 05/14/2023 8:38 AM CLUBHOUSE MANAGER EXLI Comment: NEGATIVE TEST RESULT. A negative [...] Cummings et al, N Engl J Med 2014;370(14):3883-7554) The normal value (reference range) for this assay is negative. COLOGUARD RE-SCREENING RECOMMENDATION: Periodic colorectal cancer screening is an important part of preventive healthcare for asymptomatic individuals at average risk for colorectal cancer. ??Following a negative Cologuard result, the [place] Cancer Society and U.S. Multi-Society Task Force screening guidelines recommend a Cologuard re-screening interval of 3 years. References: [place] [employer] Guideline for Colorectal Cancer Screening: https://www.cancer.org/cancer/edkqi-lvhvtq-pfwoep/detection- diagnosis-staging/acs-recommendations.html.; Bryn PURVIS, Jean-Paul FRAUSTO, Miya BeardK, Colorectal Cancer Screening: Recommendations for Physicians and Patients from the U.S. Multi-Society Task Force on Colorectal Cancer Screening , Am J Gastroenterology 2017; 112:8124-7864. TEST DESCRIPTION: Composite algorithmic analysis of stool [...] (Hillary Head al, N Engl J Med 2014;370(14):0882-0580.) Cologuard may produce a false negative or false positive result (no colorectal cancer or precancerous polyp present at colonoscopy follow up). A negative Cologuard test result does not guarantee the absence of CRC or advanced adenoma (pre-cancer). The current Cologuard screening interval is every 3 years. ([place] Cancer Society and U.S. Multi-Society Task Force). Cologuard performance data in a 10,000 patient pivotal study using colonoscopy as the reference method can be accessed at the following location: www.[employer]/results. Additional description of the Cologuard test process, warnings and precautions can be found at www.cologuard.com. Stool (Stool) 05/03/2023 7:1 5 AM CLUBHOUSE MANAGER 05/04/2023 8:54 AM CLUBHOUSE MANAGER Mary Dayl P.A.-C. LAB BODY FLUIDS AN D STOOLS ORDERABLES [employer] [address] [place] [address] EXLI Prevently [address] [facility], [address] [place] [address] documented in this encounter Visit Diagnoses Diagnosis Screening Cancer Colon documented in this encounter Additional Health Concerns Assessment Noted Time PHQ-9 Depression Total Score: 1 04/04/19 18 8:01 AM CLUBHOUSE MANAGER documented as of this encounter Care Teams Weekend Anchor Relationship Specialty Start Date End Date Mary Daly P.A.-C. [address] [place] [phone] PCP - General Family Medicine 03/08/20 documented as of this encounter
--- OUTSIDE RECORDS SUMMARY | 2023-07-10 11:53 | XMS_ITS ---
Author Name Unknown Organization [facility] Address [address] [place] [address] Care Team Providers Care Gas Meter Mechanic Name Role Phone Unavailable Unavailable Unavailable Surgery Details Not on file Complications Check Surgery Details section. Procedure Estimated Blood Loss Check Surgery Details section. Procedure Findings Check Surgery Details section. Procedure Specimens Taken Check Surgery Details section.
[2023-07-10] MEDS: LACTATED RINGERS 1000 ML 1,000 ML 100 ML IV (12:42)
[2023-07-10] MEDS: SODIUM CHLORIDE 0.9 % (FLUSH) 10 ML SYRINGE IVF (12:42)
[2023-07-10] MEDS: CEFAZOLIN 2 GM INJ IVP (13:00)
[2023-07-10] MEDS: BUPIVACAINE 0.25% 30 ML INJECTION (13:29)
--- NOTE | 2023-07-10 13:32 | W.ANESCHARGE ---
Anesthesia Charges Start Date/Time Anesthesia Start Date: 07/10/23 Anesthesia Start Time: 12:48 Stop Date/Time Anesthesia Stop Date: 07/10/23 Anesthesia Stop Time: 13:43
--- NOTE | 2023-07-10 13:43 | W.ANESCHARGE ---
Anesthesia Charges Start Date/Time Anesthesia Start Date: 07/10/23 Anesthesia Start Time: 12:48 Stop Date/Time Anesthesia Stop Date: 07/10/23 Anesthesia Stop Time: 13:43
--- NOTE | 2023-07-10 13:43 | PM.ORPRC ---
Procedure Note Date of procedure: 07/10/23 Procedure: PREOPERATIVE DIAGNOSIS: Right knee medial meniscus tear POSTOPERATIVE DIAGNOSIS: Right knee medial meniscus tear NAME OF OPERATION: Right knee arthroscopic partial medial meniscectomy SURGEON: Adarsh Hernandez MD PETROLEUM ANALYST: Marie Rivas PA-C ANESTHESIA: Spinal ESTIMATED BLOOD LOSS: 0 mL COMPLICATIONS: None SPECIMENS: None DRAINS: None PREOPERATIVE ANTIBIOTICS: Ancef 2 gram INDICATIONS: The patient is a 68-year-old with a history of right knee medial pain. MRI scan is consistent with a medial meniscus tear. Despite appropriate nonoperative management, including activity modification, antiinflammatories, [id number] pain medication, bracing, physical therapy, and injections they continue to have pain and disability. Operative intervention was offered. The risks, benefits and expected outcomes were discussed in detail. These included but were not limited to: Infection, bleeding, injury to blood vessel or nerve, venous thromboembolism. All questions were answered to their satisfaction. PROCEDURE: Spinal anesthesia was administered. The patient was placed supine on the operating room table. The right lower extremity was prepped and draped in the usual sterile fashion. The limb was exsanguinated with the Ihsan bandage. The pneumatic tourniquet was inflated to 300 mmHg. A standard anterolateral portal was established. The arthroscope was introduced. The working portal was established anteromedially. Diagnostic arthroscopy was performed with findings as follows: The suprapatellar pouch is normal. Articular surface on the patella is normal. Articular surface on the trochlea is normal. The medial gutter is normal. The medial compartment shows diffuse grade 2/3 change on the medial femoral condyle, normal articular cartilage on the medial tibial plateau. The medial meniscus has a complex degenerative tear of the posterior horn, into the midbody. This consists of a small radial tear and intrasubstance horizontal cleavage tearing. The root is intact. The notch shows the ACL to be intact. The lateral compartment shows normal articular cartilage on the lateral femoral condyle and lateral tibial plateau. The lateral meniscus is normal. The lateral gutter is normal. The undersurface and leading edge of the posterior horn of the medial meniscus was debrided with a combination of baskets and Agnieszka. The inferior leaflet of the horizontal cleavage tear was resected, taken to a stable base. Arthroscopic instruments were removed, the portal sites were Steri-Stripped closed, the knee was infiltrated with 30 mL of 0.25% Marcaine without epinephrine. A dry dressing was applied, the tourniquet was released. Sponge and needle counts were correct x 2. The patient tolerated the procedure well. There were no apparent complications. They were carefully transferred to the hospital bed and taken to the postanesthesia care unit in satisfactory condition. PLAN: The patient will be discharged to home. They may weightbear as tolerates. Range of motion will be unrestricted. They will follow up in the office next week for a wound check.
[2023-07-10] MEDS: LACTATED RINGERS 1000 ML 1,000 ML 35 ML IV (13:51)
--- NOTE | 2023-07-10 14:13 | SUR.PHASEI ---
patient meets pacu d/c criteria
== END 2023-07-10 15:32 | disposition home or self-care (01) ==
LOC: OR 11:51
PROVIDERS: PCP Physician Assistant; Visit Provider Orthopaedic Surgery
PROC: (CPT 29870; principal; 2023-07-10 13:15)
DX: S83.231A Complex tear of medial meniscus, current injury, right knee, initial encounter (principal)
CPT/HCPCS: 29881; 01400; J0665; J0690; J1100; J1885; J2250; J2704; J3010; J7120